=== PATIENT | male | born 1960 | race Caucasian/White ===

== ENCOUNTER 2022-09-03 07:27 | Day surgery (SDC) | payer OTHER ==
[2022-09-03] MEDS ORDERED: Propofol 200 MG/20 ML SDV ONE (07:51)
[2022-09-03] MEDS ORDERED: Midazolam 1 MG/ML 2 ML SDV ONE (07:51)
[2022-09-03] MEDS ORDERED: fentaNYL 50 MCG/ML SDV ONE (07:51)
[2022-09-03] MEDS: Lactated Ringers 1,000 ML IV SCH (08:09)
== END 2022-09-03 10:20 | disposition home or self-care (01) ==
LOC: JP.SDS 07:27
PROVIDERS: ATTEND Student in an Organized Health Care Education/Training Program
DX: Z12.11 Encounter for screening for malignant neoplasm of colon (principal); D12.5 Benign neoplasm of sigmoid colon; Z86.010 Personal history of colon polyps; Z79.01 Long term (current) use of anticoagulants
CPT/HCPCS: 45380; 88305; J2250; J2704; J3010; J7120